=== PATIENT | female | born 1980 | race Caucasian/White ===

== ENCOUNTER 2018-02-09 00:46 | Outpatient (CLI) | payer BC, SELFPAY ==
--- NOTE | 2018-02-09 10:54 | DI.MRI_ITS ---
SYMPTOM/DIAGNOSIS: LUMBAR RADICULOPATHY, M54.16, LT HIP AND LEG PAIN LUMBAR SPINE MRI: Routine noncontrast examination was performed. No priors for comparison. The conus medullaris has a normal appearance and location. At L 5-S 1, there is disc desiccation. No central spinal canal stenosis is seen. There are degenerative changes of the facets present. There is moderate narrowing of the right neural foramen with mild impingement of the exiting nerve root. There is marked narrowing of the left neural foramen with moderate to severe impingement of the exiting nerve root. At L 4-5, there are mild degenerative endplate signal changes. No focal disc herniation, central spinal canal or neural foraminal stenosis is seen. L 3-4 and L 2-3 show no focal disc herniation, central spinal canal or neural foraminal stenosis. At L 1-2, there is mild disc desiccation and a small central disc herniation. No significant central spinal canal or neural foraminal stenosis is seen. Marrow signal is within normal limits. IMPRESSION: 1. Degenerative changes in the lumbar spine at L 5-S 1 resulting in bilateral neural foraminal stenosis and bilateral nerve root impingement. 2. Small central disc herniation at L 1-2 but no significant central spinal canal stenosis or nerve root impingement is seen.
== END 2018-02-09 01:06 ==
PROVIDERS: PCP Internal Medicine; Visit Provider Chiropractor
DX: M54.16 Radiculopathy, lumbar region (principal); M25.552 Pain in left hip; M79.605 Pain in left leg; M51.26 Other intervertebral disc displacement, lumbar region
CPT/HCPCS: 72148

== ENCOUNTER → 2021-10-22 00:43 | Outpatient (CLI) | payer BC, SELFPAY ==
--- NOTE | 2021-10-22 | DI.MRI_ITS ---
Exam(s) MR CERVICAL SPINE WO EXAM: MR CERVICAL SPINE WO CLINICAL HISTORY: M50.12 RADICULOPATHY. TECHNIQUE: Multiplanar multisequence MRI was performed. COMPARISON: No exams were available for comparison FINDINGS: MR examination of the cervical spine was performed according to the usual protocol. No significant b alec signal abnormality seen. Posterior fossa structures appear intact as visualized. Spinal cord shows normal diameter and normal signal throughout. No significant findings at C2-3. At C3-4 there is mild prominence of the disc osteophyte complex. No central canal spinal stenosis, n eural foraminal stenosis, or disc herniation. At C4-5, there is mild prominence of the disc osteophyte complex without evidence of disc herniation, central canal spinal stenosis, or neural foraminal stenosis. At C5-6, there is a left lateral disc herniation which also extends above the disc level. There is n arrowing of the neural foramina on the left at this level. There is minimal anterior cord surface de formity at site of the disc herniation. At C6-7, there is mild prominence of the disc osteophyte complex. There appears to be mild bilateral neural foraminal narrowing. No disc herniation or central canal spinal stenosis. At C7-T1 there are no significant findings. T1-2, T2-3, and T3-4 levels appear grossly intact as vis ualized on sagittal imaging. IMPRESSION: Left-sided disc herniation at C5-6 as described above. Additional findings at multiple cervical leve ls also noted, please see above discussion. DATA REPOSITORY:
== END ==
PROVIDERS: PCP Internal Medicine; Visit Provider Chiropractor
DX: M50.122 Cervical disc disorder at C5-C6 level with radiculopathy (principal)
CPT/HCPCS: 72141